=== PATIENT | male | born 1970 | race Caucasian/White ===

== ENCOUNTER → 2016-10-10 | Outpatient (CLI) | payer BC ==
--- NOTE | 2016-10-10 17:20 | XR ---
EXAMINATION TYPE: XR KUB DATE OF EXAM: 10/10/2016 5:10 PM HISTORY: Pain, follow-up nephrolithiasis Comparison: 07/09/2012 Single KUB is submitted for interpretation. Findings: Right renal calculi: No definite calculi identified although overlying bowel content limits evaluatio n. Right ureteral calculi: None Visualized. Left renal calculi: There appears be 5.4 mm calculus lower pole left kidney. Additional smaller calc jeffery may be present. Overlying bowel content limits evaluation. Left ureteral calculi: None Visualized. Pelvic calcifications: None Visualized. Bowel gas pattern is unremarkable. No free air. No mass effects. IMPRESSION: 1. Left-sided nephrolithiasis as discussed.
== END ==
LOC: RADXRMAIN 16:38
PROVIDERS: ATTEND Urology
DX: N20.0 Calculus of kidney (principal)
CPT/HCPCS: 74000

== ENCOUNTER → 2018-01-15 | Outpatient (CLI) | payer BC ==
--- NOTE | 2018-01-15 15:24 | CT ---
EXAMINATION TYPE: CT heart w calcium score DATE OF EXAM: 01/15/2018 COMPARISON: None HISTORY: Screening for cardiovascular disorder. 213.9 CT DLP: 81.6 mGycm Automated exposure control for dose reduction was used. CT CALCIUM SCORING Coronary calcium is a marker for plaque (fatty deposits) in a blood vessel or atherosclerosis (harden ing of the arteries). The presence and amount of calcium detected in a coronary artery by the CT sca n, indicates the presence and amount of atherosclerotic plaque. These calcium deposits appear years before the development of heart disease symptoms such as chest pain and shortness of breath. A calcium score is computed for each of the coronary arteries based upon the volume and density of th e calcium deposits. This can be referred to as your calcified plaque burden. It does not correspond directly to the percentage of narrowing in the artery but does correlate with the severity of the un derlying coronary atherosclerosis. PROCEDURE TECHNIQUE - Prospective Gating was used. Slice thickness: 3mm. Density threshold (HU): 130, Pixel threshold: 3, Algorithm: discrete. RESULTS Region: LM Calcium Score ([place]): 0.0 Volume (mm3): 0.0 Mass (g): 0.0 Region: RCA Calcium Score ([place]): 0.0 Volume (mm3): 0.0 Mass (g): 0.0 Region: LAD Calcium Score ([place]): 0.0 Volume (mm3): 0.0 Mass (g): 0.0 Region: CX Calcium Score ([place]): 0.0 Volume (mm3): 0.0 Mass (g): 0.0 Region: PDA Calcium Score ([place]): 0.0 Volume (mm3): 0.0 Mass (g): 0.0 Total: Calcium Score ([place]): 0.0 Volume (mm3): 0.0 Mass (g): 0.0 TOTAL CALCIUM SCORE: 0.0 Visualized lungs are clear. Dominant right coronary artery incidentally noted. There is simple appear ing thin-walled cyst 2.5 cm cyst in the central hepatic dome axial image 46 which is grossly stable f rom prior CT abdomen May 14, 2016. IMPRESSION: Calcium Score: 0 Implication: No identifiable plaque. Risk of Coronary Artery Disease: Very low, generally less than 5%.
== END | disposition home or self-care (01) ==
LOC: RADCTMAIN 14:15
PROVIDERS: ATTEND Internal Medicine Cardiovascular Disease
DX: R07.9 Chest pain, unspecified (principal)
CPT/HCPCS: 75571